=== PATIENT | female | born 1990 | race Caucasian/White ===

== ENCOUNTER 2020-12-04 16:45 | Outpatient (REF) | payer MEDICAID, SELFPAY | END 2020-12-04 16:46 | disposition home or self-care (01) | LOC: HO.LAB 16:45 | PROVIDERS: Visit Provider Internal Medicine | DX: Z20.828 Contact with and (suspected) exposure to other viral communicable diseases (principal) | CPT/HCPCS: 36415; C9803; U0003 ==

== ENCOUNTER 2020-12-30 16:55 | Emergency (ER) | payer MEDICAID, SELFPAY ==
[2020-12-30 17:31] VITALS: BP 112/56; PULSE 68; RESP 16; TEMP 36.7; O2SAT 100; BMI 26.2
[2020-12-30 18:00] VITALS: BP 126/69; PULSE 66; RESP 18; TEMP 36.7; O2SAT 100
--- NOTE | 2020-12-30 18:20 | ED_ITS ---
HPI - URI/Sore Throat General Chief Complaint: Upper Respiratory Symptoms Stated Complaint: Cough/-Covid test 2wks ago Source: patient Mode of arrival: ambulatory Limitations: language barrier History of Present Illness HPI Narrative: 30-year-old female with recurrent bronchitis presents with upper respiratory that she feels is consistent with her history of yearly bronchitis. She states to have a deep cough, itchy throat and mucous, does not report any fevers or chills, headaches, chest pain or pressure, palpitations, shortness breath, abdominal pain, abdominal distention, dysuria, hematuria, and edema. MD elicited complaint: cough and sore throat Onset (ago): week(s) (3) Consistency: constant Severity: moderate Description of mucous: clear Able to tolerate fluids by mouth: Yes Exacerbating factors: exertion Relieving factors: nothing Associated symptoms: denies other symptoms Treatments prior to arrival: acetaminophen, ibuprofen and cold medicine Related Data Previous Rx's Medication Instructions Recorded azithromycin [Zithromax Z-Kranthi] 250 mg PO DAILY 4 Days #4 tab 12/30/20 benzonatate [Tessalon Perles] 100 mg PO TID PRN #30 cap 12/30/20 Allergies Allergy/AdvReac Type Severity Reaction Status Date / Time No Known Allergies Allergy Verified 12/30/20 17:37 [No Known Allergies*] Review of Systems Review of Systems: Constitutional: No Fever, No Chills ENT/Mouth: No oral swelling, No Hoarseness, No Swallowing Difficulty Eyes: No Eye Pain, No Swelling, No Redness Cardiovascular: No Chest Pain, No SOB Respiratory: Positive Cough, positive Sputum, No Wheezing, No Smoke Exposure, No Dyspnea Gastrointestinal: No Nausea, No Vomiting, No Diarrhea, No abdominal Pain Genitourinary: No Dysuria, No Urinary Frequency, No Hematuria Musculoskeletal: No joint pain, No Myalgias, No Joint Swelling Skin: No Skin Lesions, no rash Neuro: No Weakness, No Numbness, No Headache Psych: No Anxiety/Panic, No Depression Heme/Lymph: No Bruising, No Lymphadenopathy Endocrine: No Polyuria, No Polydipsia Yes all other systems are reviewed and are negative [facility] Past Medical History Attestation statement: The following information was validated with the patient. Source: old records reviewed Medical History No known health problems Social History Social History Advance Directives: No Advance Directives Information Provided: No Physical Exam Vital Signs: Vital Signs: Last Vital Signs Temp 98.1 F 12/30/20 18:00 Pulse 82 12/30/20 18:41 Resp 18 12/30/20 18:00 BP 126/69 12/30/20 18:00 Pulse Ox 100 12/30/20 18:00 Body Mass Index 26.2 Appearance: Alert. Oriented X3. No acute distress. Eyes: Pupils equal, round and reactive to light. ENT: Pharynx normal. Neck: Normal inspection. Neck supple. CVS: Normal heart rate and rhythm. Pulses normal. Respiratory: No respiratory distress. Breath sounds normal. Abdomen: Soft and nontender. Skin: Skin warm and dry. Normal skin color. Normal skin turgor. Extremities: No lower extremity edema. Neuro: No motor deficit. No sensory deficit. Course Course Course Narrative: 30-year-old female with past medical history of recurrent bronchitis presents with symptoms consistent with her past history. States that she has been coughing with itchy throat for approximately 3 weeks, had a negative COVID test on 12/07/2020, but states that her symptoms are present dressing and feels like her mucus is getting thicker. Plan of care is to repeat COVID test, and for chest x-ray. COVID negative. Plan of care is to discharge home with azithromycin, Tessalon and albuterol. Patient verbalized understanding of and agrees plan of care discharge home. MDM - URI/Sore Throat Differential Diagnosis Differential diagnosis: Likely upper respiratory infection, otitis media, sinusitis, viral infection and bronchitis Medical Records Attestation: I reviewed the patient's medical records. Lab Data Attestation: I reviewed the patient's lab results. Labs: Lab Results 12/30/20 Range/Units 17:39 Coronavirus (PCR) NEGATIVE (Negative) Influenza Type A (PCR) NEGATIVE (Negative) Influenza Type B (PCR) NEGATIVE (Negative) RSV RNA Qual (PCR) NEGATIVE (Negative) Imaging Data Chest x-ray: Attestation: I personally reviewed and interpreted this imaging study as follows: Radiologist's impression: EXAMINATION: XR CHEST CLINICAL INFORMATION: Cough COMPARISON: Chest x-ray of 11/03/2019 TECHNIQUE: Frontal view of the chest was obtained. FINDINGS: The cardiomediastinal silhouette is stable and normal. The lungs are symmetrically well expanded. The lungs are clear. No evidence of pleural effusions or pneumothorax. Regional skeleton is intact. Visualized upper abdomen is unremarkable. XR/XR chest 1V IMPRESSION: No radiographic evidence of pneumonia. No acute pulmonary process. Discharge Plan Discharge Clinical Impression: Bronchitis Upper respiratory infection Qualifiers: URI type: unspecified URI Qualified Code(s): J06.9 - Acute upper respiratory infection, unspecified Patient Disposition: Home, Self-Care Instructions: Acute Bronchitis (ED) Additional Instructions: You were evaluated for upper respiratory symptoms. Chest x-ray is negative. Based on your past medical history of recurrent bronchitis we will treat you with Azithromycin. Please take this medication as directed. Follow-up with primary care physician as needed. Thank you for choosing this emergency department for evaluation. Please follow-up with primary care physician as needed. Return to the emergency department for any new, concerning, or worsening symptoms. Prescriptions: New azithromycin [Zithromax Z-Kranthi] 250 mg tablet 250 mg PO DAILY 4 Days Qty: 4 RF: 0 benzonatate [Tessalon Perles] 100 mg capsule 100 mg PO TID PRN (Reason: cough) Qty: 30 RF: 0 Interventions: ED Discharge Assessment Last Done: 12/30/20 19:34 Discharge Date/Time: 12/30/20 19:36
[2020-12-30] MEDS: Albuterol Sulfate 90 MCG 8 GM INHALER 2 PUFF INHALE (18:40)
[2020-12-30 18:41] VITALS: PULSE 82; O2SAT 96
[2020-12-30] MEDS: Azithromycin 500 MG TABLET PO (19:30)
[2020-12-30 19:57] LABS: Influenza A PCR NEGATIVE (Negative); Influenza B PCR NEGATIVE (Negative); Resp Syncy Virus RNA Qual PCR NEGATIVE (Negative); SARS COV2 PCR INHOUSE NEGATIVE (Negative)
== END 2020-12-30 19:36 | disposition home or self-care (01) ==
PROVIDERS: Emergency Provider Internal Medicine; PCP Student in an Organized Health Care Education/Training Program
DX: J20.9 Acute bronchitis, unspecified (principal); J06.9 Acute upper respiratory infection, unspecified; Z20.822 Contact with and (suspected) exposure to COVID-19
CPT/HCPCS: 0241U; 36415; 71045; 94640; 99283

== ENCOUNTER 2021-01-20 00:37 | Emergency (ER) | payer MEDICAID, SELFPAY ==
--- NOTE | ~2021-01-20 | XR_ITS ---
EXAMINATION: XR CHEST CLINICAL INFORMATION: Cough COMPARISON: 12/30/2020 TECHNIQUE: Frontal view of the chest was obtained. FINDINGS: The lungs are well expanded. There is no focal consolidation, edema, or effusion. No pneumothorax. The cardiomediastinal silhouette is within normal limits. No acute osseous abnormality. XR/XR chest 1V IMPRESSION: Clear lungs.
[2021-01-20 02:27] VITALS: BP 122/63; PULSE 80; RESP 18; TEMP 36.9; O2SAT 98; BMI 26.2
--- NOTE | 2021-01-20 03:47 | ED.URI ---
HPI - URI/Sore Throat General Chief Complaint: Upper Respiratory Symptoms Stated Complaint: Bronchitis? Time Seen by Provider: 01/20/21 03:39 Source: patient Mode of arrival: ambulatory Limitations: no limitations History of Present Illness HPI Narrative: Patient comes to emergency room complaining that her bronchitis has not improved. Patient states she was diagnosed with bronchitis at the end of December, patient still coughing. Patient states she has talked to her primary care physician. Patient has had multiple rounds of antibiotics and prednisone and Tessalon Perles. Patient states she still dry coughing. Patient denies shortness of breath. MD elicited complaint: cough Related Data Previous Rx's Medication Instructions Recorded azithromycin [Zithromax Z-Kranthi] 250 mg PO DAILY 4 Days #4 tab 12/30/20 benzonatate [Tessalon Perles] 100 mg PO TID PRN #30 cap 12/30/20 Allergies Allergy/AdvReac Type Severity Reaction Status Date / Time No Known Allergies Allergy Verified 12/30/20 17:37 [No Known Allergies*] Review of Systems Review of Systems: Constitutional : No Weight loss, No Fever, No Chills, No Night Sweats, No Fatigue, No Malaise ENT/Mouth : No Hearing loss, No Ear Pain, No Nasal Congestion, No Sinus Pain, No Hoarseness, No sore throat, No Rhinorrhea, No Swallowing Difficulty Eyes: No Eye Pain, No Swelling, No Redness, No Foreign Body, No Discharge, No Vision Changes Cardiovascular : No Chest Pain, No SOB, No Dyspnea on Exertion, No Orthopnea, No Edema, No Palpitations Respiratory : Complaining of dry Cough, No Sputum, No Wheezing, No Smoke Exposure, No Dyspnea Gastrointestinal : No Nausea, No Vomiting, No Diarrhea, No Constipation, No abdominal Pain, No Hematochezia, No Melena Genitourinary : no irregular bleeding, No Dysuria, No Urinary Frequency, No Hematuria, No Urinary Incontinence, No Urgency, No Flank Pain, No Urinary Flow Changes, No Hesitancy Musculoskeletal : No joint pain, No Myalgias, No Joint Swelling Skin : No Skin Lesions, No rash Neuro : No Weakness, No Numbness, No Paresthesias, No Loss of Consciousness, No Dizziness, No Headache Psych : No Anxiety/Panic, No Depression, No SI/HI/AH/VH, No Social Issues, Heme/Lymph: No Bruising, No Bleeding,No Lymphadenopathy Endocrine : No Polyuria, No Polydipsia, No Temperature Intolerance PMF Past Medical History Medical History No known health problems Social History Social History Advance Directives: No Physical Exam Vital Signs: Vital Signs: Last Vital Signs Temp 98.5 F 01/20/21 02:27 Pulse 80 01/20/21 02:27 Resp 18 01/20/21 02:27 BP 122/63 01/20/21 02:27 Pulse Ox 98 01/20/21 02:27 Body Mass Index 26.2 Appearance: Alert. Oriented X3. No acute distress. Eyes: Pupils equal, round and reactive to light. ENT: Pharynx normal. Neck: Normal inspection. Neck supple. No lymph nodes noted. No crepitus CVS: Normal heart rate and rhythm. Pulses normal. Normal S1 and S2 Respiratory: No respiratory distress. Breath sounds normal. No Wheezing. No rales Abdomen: Soft and nontender. No rigidity. No distention. good BS x4 Skin: Skin warm and dry. Normal skin color. Normal skin turgor. Extremities: No lower extremity edema. No lower extremity edema. No Lacerations. No Rash Neuro: Oriented X 3. No motor deficit. No sensory deficit. Moving all extermities. No slurred speech. Course Course Course Narrative: I discussed with the patient, that unfortunately, the coughing spells may last 6-8 weeks. At this time, antibiotics are not indicated. Patient has had multiple COVID-19 tests. Patient declined 1 today MDM - URI/Sore Throat Imaging Data Chest x-ray: Radiologist's impression: FINDINGS: The lungs are well expanded. There is no focal consolidation, edema, or effusion. No pneumothorax. The cardiomediastinal silhouette is within normal limits. No acute osseous abnormality. XR/XR chest 1V IMPRESSION: Clear lungs. Discharge Plan Discharge Clinical Impression: Chronic bronchitis Qualifiers: Chronic bronchitis type: simple Qualified Code(s): J41.0 - Simple chronic bronchitis Patient Disposition: Home, Self-Care Instructions: Chronic Bronchitis (ED) Additional Instructions: Please follow-up with your primary care physician tomorrow. If you have any worsening or new symptoms, please return to the emergency room or call 911 Prescriptions: No Action azithromycin [Zithromax Z-Kranthi] 250 mg tablet 250 mg PO DAILY 4 Days Qty: 4 RF: 0 benzonatate [Tessalon Perles] 100 mg capsule 100 mg PO TID PRN (Reason: cough) Qty: 30 RF: 0
== END 2021-01-20 05:30 | disposition home or self-care (01) ==
PROVIDERS: Emergency Provider Emergency Medicine; PCP Student in an Organized Health Care Education/Training Program
DX: J41.0 Simple chronic bronchitis (principal)
CPT/HCPCS: 71045; 99283; 99284

== ENCOUNTER 2021-04-01 18:38 | Emergency (ER) | payer MEDICAID, SELFPAY ==
--- NOTE | ~2021-04-01 | CT_ITS ---
EXAMINATION: CT HEAD WITHOUT CONTRAST CLINICAL INFORMATION: Headache COMPARISON: None TECHNIQUE: Contiguous axial imaging was performed from the skull base to vertex without intravenous administration of contrast. This CT examination was performed using dose optimization techniques as appropriate, variously including the following: *Automated exposure control *Adjustment of mA and/or kV according to patient size (this includes techniques or standardized protocols for targeted exams where dose is matched to indication/reason for exam; i.e. extremities or head) *Use of iterative reconstruction technique DLP: 696 mGy-cm FINDINGS: There is no evidence of acute intracranial hemorrhage or territorial infarction. No abnormal mass effect or midline shift is seen. Roman to white matter differentiation is well preserved. No extra-axial fluid collections are identified. The ventricles are normal in size. There is no abnormal attenuation within the brain parenchyma. The osseous structures and soft tissues are normal. The mastoid air cells and visualized portions of the paranasal sinuses are well aerated. CT/CT head/brain wo con IMPRESSION: No acute intracranial pathology.
[2021-04-01 18:47] VITALS: BP 123/75; PULSE 72; RESP 16; TEMP 36.6; O2SAT 98; BMI 25.7
[2021-04-01 19:33] LABS: UPreg QC Valid YES; Urine Pregnancy NEGATIVE (NEGATIVE)
--- NOTE | 2021-04-01 21:30 | ED_ITS ---
HPI - Headache General Chief Complaint: Headache Stated Complaint: headache Time Seen by Provider: 04/01/21 21:22 Source: patient Mode of arrival: ambulatory Limitations: no limitations History of Present Illness HPI Narrative: 30 yo female with no PMH hit her head on the corner of a table L side on since then noted L sided headache that wont go away also her R eye is painful and irritated MD elicited complaint: headache Onset (ago): day(s) (3) Onset description: suddenly Location: left and temporal Severity: moderate Quality & Timing: throbbing Exacerbating factors: movement of head/neck Relieving factors: nothing Context: recent head injury Associated symptoms: eye pain and eye redness Treatments prior to arrival: acetaminophen and ibuprofen Related Data Previous Rx's Medication Instructions Recorded azithromycin [Zithromax Z-Kranthi] 250 mg PO DAILY 4 Days #4 tab 12/30/20 benzonatate [Tessalon Perles] 100 mg PO TID PRN #30 cap 12/30/20 trfjjwxkhl-wtwjviqjfopau-abbt 1 tab PO Q6H PRN #20 tab 04/01/21 cyclobenzaprine 10 mg PO TID PRN #14 tab 04/01/21 ketotifen fumarate 1 drp OPHTHALMIC (EYE) BID PRN #5 04/01/21 ml Allergies Allergy/AdvReac Type Severity Reaction Status Date / Time No Known Allergies Allergy Verified 12/30/20 17:37 [No Known Allergies*] Review of Systems Review of Systems: Constitutional : No Fever, No Chills, No Fatigue ENT/Mouth : No sore throat, No Rhinorrhea Eyes: pos Eye Pain, No Swelling, pos Redness Cardiovascular : No Chest Pain, No SOB, No Dyspnea on Exertion Respiratory : No Cough, No Sputum Gastrointestinal : No Nausea, No Vomiting, No Diarrhea, No abdominal Pain Genitourinary : No Dysuria, No Urinary Frequency, No Hematuria, Musculoskeletal : No joint pain, No Myalgias, No Joint Swelling Skin : No Skin Lesions, No rash Neuro : No Weakness, No Numbness, No Dizziness, positive Headache Psych : No Anxiety/Panic, No Depression Heme/Lymph: No Bruising, No Bleeding,No Lymphadenopathy Endocrine : No Polyuria, No Polydipsia All other systems reviewed and are negative PMFSH Past Medical History Attestation statement: The following information was validated with the patient. Medical History No known health problems Social History Social History (Updated 04/01/21 @ 21:39 by Anayeli Navas DO) Alcohol intake: never Smoking Status: Never smoker Advance Directives: No Advance Directives Information Provided: No Physical Exam Vital Signs: Vital Signs: Last Vital Signs Temp 98.1 F 04/01/21 22:29 Pulse 64 04/01/21 22:29 Resp 18 04/01/21 22:29 BP 113/61 04/01/21 22:29 Pulse Ox 100 04/01/21 22:29 Body Mass Index 25.7 Appearance: Alert. Oriented X3. No acute distress. Eyes: Pupils equal, round and reactive to light. R eye lateral sclera patch of red inflammed vessels not near iris ENT: Pharynx normal. Neck: Normal inspection. Neck supple. CVS: Normal heart rate and rhythm. Pulses normal. Respiratory: No respiratory distress. Breath sounds normal. Abdomen: Soft and nontender. Skin: Skin warm and dry. Normal skin color. Normal skin turgor. Extremities: No lower extremity edema. No calf ttp Neuro: Oriented X 3. No motor deficit. No sensory deficit. Course Course Course Narrative: symptoms improved stable for DC MDM - Headache MDM Narrative Medical decision making narrative: 30 yo female with recent head injury now with severe headache - will obtain CT scan to r/o trauma but suspect concussion, R eye no vision changes likely episcleritis will provide topical NSAID - dispo per results and findings Lab Data Labs: Lab Results 04/01/21 Range/Units 19:21 Urine Test NEGATIVE (NEGATIVE) Discharge Plan Discharge Clinical Impression: Concussion Qualifiers: Encounter type: initial encounter Loss of consciousness presence/duration: without LOC Qualified Code(s): S06.0X0A - Concussion without loss of cons ciousness, initial encounter Episcleritis Qualifiers: Laterality: right Qualified Code(s): H15.101 - Unspecified episcleritis, right eye Patient Disposition: Home, Self-Care Instructions: Concussion (ED) Additional Instructions: return to ED for any worsening symptoms or concerns Prescriptions: New cyclobenzaprine 10 mg tablet 10 mg PO TID PRN (Reason: muscle spasm) Qty: 14 RF: 0 yiturfkudu-elirjapqtjyho-fpcd 50-325-40 mg tablet 1 tab PO Q6H PRN (Reason: pain) Qty: 20 RF: 0 ketotifen fumarate 0.025 % (0.035 %) drops 1 drp ophthalmic (eye) BID PRN (Reason: allergy symptoms) Qty: 5 RF: 0 No Action azithromycin [Zithromax Z-Kranthi] 250 mg tablet 250 mg PO DAILY 4 Days Qty: 4 RF: 0 benzonatate [Tessalon Perles] 100 mg capsule 100 mg PO TID PRN (Reason: cough) Qty: 30 RF: 0
[2021-04-01 21:41] VITALS: BP 109/61; PULSE 65; RESP 18; TEMP 36.9; O2SAT 99
[2021-04-01] MEDS: Butalb/Acetamin/Caff 50/325/40 TABLET 1 TAB PO (22:02)
[2021-04-01] MEDS: Cyclobenzaprine HCl 10 MG TABLET PO (22:02)
[2021-04-01 22:04] VITALS: BP 110/62; PULSE 66; RESP 6; TEMP 36.8; O2SAT 100
[2021-04-01 22:29] VITALS: BP 113/61; PULSE 64; RESP 18; TEMP 36.7; O2SAT 100
[2021-04-01] MEDS: Ketotifen Fumarate 0.025% Oph 5 ML DRPBTL 1 DROP EYE-BOTH (22:45)
== END 2021-04-01 23:26 | disposition home or self-care (01) ==
PROVIDERS: Emergency Provider Emergency Medicine; PCP Student in an Organized Health Care Education/Training Program
DX: S06.0X0A Concussion without loss of consciousness, initial encounter (principal); W22.03XA Walked into furniture, initial encounter; H15.101 Unspecified episcleritis, right eye; R51.9 Headache, unspecified; H57.11 Ocular pain, right eye; Y93.9 Activity, unspecified; Y92.039 Unspecified place in apartment as the place of occurrence of the external cause; Y99.9 Unspecified external cause status
CPT/HCPCS: 70450; 81025; 99284

== ENCOUNTER 2022-06-20 14:00 | Outpatient (RCR) | payer MEDICAID, SELFPAY ==
[2022-05-07 11:18] VITALS: BP 112/63; PULSE 65
== END 2022-06-20 15:23 | disposition home or self-care (01) ==
LOC: HO.PT 14:00
PROVIDERS: PCP Student in an Organized Health Care Education/Training Program; Visit Provider Student in an Organized Health Care Education/Training Program
DX: M54.2 Cervicalgia (principal)
CPT/HCPCS: 97014; 97110; 97140; 97162

== ENCOUNTER → 2022-10-02 15:41 | Outpatient (BNVA) | payer MEDICAID, SELFPAY | PROVIDERS: PCP Student in an Organized Health Care Education/Training Program; Visit Provider Anesthesiology | DX: M47.812 Spondylosis without myelopathy or radiculopathy, cervical region (principal); M19.011 Primary osteoarthritis, right shoulder; M19.012 Primary osteoarthritis, left shoulder | CPT/HCPCS: 99202 ==

== ENCOUNTER 2022-10-15 06:08 | Outpatient (REF) | payer MEDICAID, SELFPAY ==
--- NOTE | ~2022-10-15 | FL_ITS ---
EXAMINATION: XR FLUOROSCOPY WITH IMAGES CLINICAL INFORMATION: M47.812 - Spondylosis without myelopathy or radiculopathy, cervical region COMPARISON: Outside MR cervical spine 03/05/2022 ([facility]) TECHNIQUE: Fluoroscopy Supervised By: Dr. Genaro Holt. Fluoroscopy Time: 0.7 minutes. Cumulative Dose: 3.51 mGy. DAP: 0.959 Gycm2. Images: 7. FINDINGS: There are spinal needles overlying the bilateral lateral masses cervical spine approximately C4, C5, and C6. There is contrast in the paraspinal soft tissues and nerve sheaths. No visible vascular communication. FL/FL guidance in treatment room IMPRESSION: Fluoroscopy for pain management procedure.
== END 2022-10-15 06:09 | disposition home or self-care (01) ==
LOC: CF 06:08
PROVIDERS: Visit Provider Anesthesiology
DX: M47.812 Spondylosis without myelopathy or radiculopathy, cervical region (principal)
CPT/HCPCS: 64490; 64491; J3300

== ENCOUNTER → 2022-11-13 15:13 | Outpatient (BNVA) | payer MEDICAID, SELFPAY | PROVIDERS: PCP Student in an Organized Health Care Education/Training Program; Visit Provider Anesthesiology | DX: M47.812 Spondylosis without myelopathy or radiculopathy, cervical region (principal); M19.011 Primary osteoarthritis, right shoulder; M19.012 Primary osteoarthritis, left shoulder | CPT/HCPCS: 99212 ==

== ENCOUNTER 2022-11-16 16:23 | Emergency (ER) | payer MEDICAID, SELFPAY ==
--- NOTE | ~2022-11-16 | CT_ITS ---
EXAMINATION: NONCONTRAST HEAD CT NONCONTRAST CERVICAL SPINE CT INDICATION INFORMATION: Headache for one month after pain management neck injection COMPARISON: Head CT 04/01/2021 TECHNIQUE: Separate noncontrast CT examinations of the head and cervical spine were performed. Coronal and sagittal images were created for each examination at the technologist workstation. This CT examination was performed using dose optimization techniques as appropriate, variously including the following: *Automated exposure control *Adjustment of mA and/or kV according to patient size (this includes techniques or standardized protocols for targeted exams where dose is matched to indication/reason for exam; i.e. extremities or head) *Use of iterative reconstruction technique DLP: 1029 mGy-cm FINDINGS: HEAD: No intra or extra-axial fluid collection, hemorrhage, or mass. No ventriculomegaly. No midline shift or herniation. Basal cisterns are patent. Roman-white matter differentiation is maintained. No territorial encephalomalacia. No significant volume loss. There is no abnormal attenuation within the brain parenchyma. No calvarial fracture or soft tissue abnormality. The mastoid air cells and visualized portions of the paranasal sinuses are well aerated. CERVICAL SPINE: Alignment: Normal. No subluxation. Vertebra: No acute fracture. No prevertebral soft tissue swelling. Degenerative disc disease: No significant. Preserved intervertebral disc heights. Other findings: No cervical lymphadenopathy. Visualized major salivary glands and thyroid gland are unremarkable. Visualized lung apices are clear. CT/CT head/brain wo IV con IMPRESSION: 1. No acute intracranial pathology. 2. No subluxation or cervical spine fracture. Preserved disc space heights.
--- NOTE | ~2022-11-16 | CT_ITS ---
EXAMINATION: NONCONTRAST HEAD CT NONCONTRAST CERVICAL SPINE CT INDICATION INFORMATION: Headache for one month after pain management neck injection COMPARISON: Head CT 04/01/2021 TECHNIQUE: Separate noncontrast CT examinations of the head and cervical spine were performed. Coronal and sagittal images were created for each examination at the technologist workstation. This CT examination was performed using dose optimization techniques as appropriate, variously including the following: *Automated exposure control *Adjustment of mA and/or kV according to patient size (this includes techniques or standardized protocols for targeted exams where dose is matched to indication/reason for exam; i.e. extremities or head) *Use of iterative reconstruction technique DLP: 1029 mGy-cm FINDINGS: HEAD: No intra or extra-axial fluid collection, hemorrhage, or mass. No ventriculomegaly. No midline shift or herniation. Basal cisterns are patent. Roman-white matter differentiation is maintained. No territorial encephalomalacia. No significant volume loss. There is no abnormal attenuation within the brain parenchyma. No calvarial fracture or soft tissue abnormality. The mastoid air cells and visualized portions of the paranasal sinuses are well aerated. CERVICAL SPINE: Alignment: Normal. No subluxation. Vertebra: No acute fracture. No prevertebral soft tissue swelling. Degenerative disc disease: No significant. Preserved intervertebral disc heights. Other findings: No cervical lymphadenopathy. Visualized major salivary glands and thyroid gland are unremarkable. Visualized lung apices are clear. CT/CT cervical spine wo IV con IMPRESSION: 1. No acute intracranial pathology. 2. No subluxation or cervical spine fracture. Preserved disc space heights.
[2022-11-16 16:42] VITALS: BP 119/86; PULSE 86; RESP 18; TEMP 37.2; O2SAT 98; BMI 26.9
--- NOTE | 2022-11-16 16:42 | ED.HA ---
HPI - Headache General Chief Complaint: Headache <SHEMAR Velez - Last Filed: 11/16/22 16:45> Stated Complaint: migraine <SHEMAR Velez - Last Filed: 11/16/22 16:45> Time Seen by Provider: 11/16/22 20:06 <SHEMAR Velez - Last Filed: 11/16/22 16:45> Source: patient <Juve Lloyd MD - Last Filed: 11/17/22 23:16> Limitations: no limitations <Juve Lloyd MD - Last Filed: 11/17/22 23:16> History of Present Illness HPI Narrative: This is a 32-year-old female who complains of a headache for about 3 or 4 days. The patient notes that she has for the chronic headaches which were attributed to tension and or neck related issues. The patient had injections in her neck done on October 15 which she said were painful and she said did not help her headaches. She had follow-up for this about 3 days ago. She is not on any medicines for migraines, has only taking ibuprofen. Her headaches were not thought to be migraines. She does note some photophobia. The headache is primarily in the back of her head. She denies any nausea vomiting. She denies any fever neck stiffness. She denies any numbness or weakness in her arms or legs or face. <Juve Lloyd MD - Last Filed: 11/17/22 23:16> Related Data Home Medications: Previous Rx's Medication Instructions Recorded azithromycin 250 mg tablet 250 mg PO DAILY 4 days #4 tabs 12/30/20 (Zithromax Z-Kranthi) benzonatate 100 mg capsule 100 mg PO TID PRN cough #30 caps 12/30/20 (Tessalon Lori) yiiarcypvb-kkeakibcmskcq-fbdgcyem 1 tab PO Q6H PRN pain #20 tabs 04/01/21 50 mg-325 mg-40 mg tablet cyclobenzaprine 10 mg tablet 10 mg PO TID PRN muscle spasm #14 04/01/21 tabs ketotifen fumarate 0.025 % (0.035 1 drp ophthalmic (eye) BID PRN 04/01/21 %) eye drops allergy symptoms #5 mL tizanidine 2 mg tablet 2 mg PO TID PRN muscle spasticity 12/14/22 30 days #90 tabs baclofen 10 mg tablet 10 mg PO TID #20 tabs 11/16/22 naproxen 500 mg tablet (Naprosyn) 500 mg PO BID PRN pain #20 tabs 11/16/22 <SHEMAR Velez - Last Filed: 11/16/22 16:45> Allergies/Adverse Reactions: Allergies Allergy/AdvReac Type Severity Reaction Status Date / Time No Known Allergies Allergy Verified 11/16/22 16:42 [No Known Allergies*] <SHEMAR Velez - Last Filed: 11/16/22 16:45> Review of Systems Review of Systems: As per HPI <Juve Lloyd MD - Last Filed: 11/17/22 23:16> [facility] Past Medical History Medical History: Medical History No known health problems <SHEMAR Velez - Last Filed: 11/16/22 16:45> Social History Social History: Social History (Updated 04/01/21 @ 21:39 by Arelis Navas DO) Alcohol intake: never Advance Directives: No Advance Directives Information Provided: Yes <SHEMAR Velez - Last Filed: 11/16/22 16:45> Physical Exam Vital Signs: Vital Signs: Last Vital Signs Temp 98 F 11/16/22 20:18 Pulse 71 11/16/22 20:18 Resp 18 11/16/22 20:18 BP 116/75 11/16/22 20:18 Pulse Ox 99 11/16/22 20:18 O2 Del Method 11/16/22 20:18 BMI result Body Mass Index 26.9 <SHEMAR Velez - Last Filed: 11/16/22 16:45> Vital Signs: Last Vital Signs Temp 98 F 11/16/22 20:18 Pulse 71 11/16/22 20:18 Resp 18 11/16/22 20:18 BP 116/75 11/16/22 20:18 Pulse Ox 99 11/16/22 20:18 O2 Del Method 11/16/22 20:18 BMI result Body Mass Index 26.9 <Juve Lloyd MD - Last Filed: 11/17/22 23:16> Const: Other: PERRLA Conj [place] Mucous membranes moist Throat clear Neck supple Lungs CTA Heart RRR no murmurs rubs or gallops Abd soft, non tender, non distended Extremities no pitting edema Neuro alert and oriented x 3, non focal <Juve Lloyd MD - Last Filed: 11/17/22 23:16> Course Course Course Narrative: GIORGIO- 16:45PM - 32yoF presenting to the ED with complaints of a migraine headache that started approximately on 10/15/2022 after she had neck injections from pain management. Reports that the pain is persistent since the injections. Reports that she followed up with pain management approximately 1 week ago and they told her there was nothing else they can do for her. She reports she usually does not get headaches. She denies any other symptoms related to this. She is requesting an MRI. I explained to her that we do not do MRIs in the ER unless they are emergent I did offer her CT scan. Plan: Patient has a normal steady gait. She is stable. Patient will be sent back to the waiting room to be evaluated in the ED will obtain labs, CT scan of brain/cervical spine and COVID/influenza swab. <SHEMAR Velez - Last Filed: 11/16/22 16:45> Medications Administered Discontinued Medications Generic Name Dose Route Start Last Admin Trade Name Freq PRN Reason Stop Dose Admin Diazepam 5 mg 11/16/22 20:13 11/16/22 20:22 Diazepam 10 Mg/2 Ml Cartridge IM 11/16/22 20:14 5 mg STAT STA Administration Ketorolac Tromethamine 30 mg 11/16/22 20:13 11/16/22 20:23 Ketorolac Tromethamine 30 Mg/Ml Vial IM 11/16/22 20:14 30 mg ONCE ONE Administration Prochlorperazine Edisylate 10 mg 11/16/22 20:13 11/16/22 20:23 Prochlorperazine Edisylate 10 Mg/2 Ml Vial IM 11/16/22 20:14 10 mg ONCE ONE Administration <SHEMAR Velez - Last Filed: 11/16/22 16:45> Medications Administered Discontinued Medications Generic Name Dose Route Start Last Admin Trade Name Freq PRN Reason Stop Dose Admin Diazepam 5 mg 11/16/22 20:13 11/16/22 20:22 Diazepam 10 Mg/2 Ml Cartridge IM 11/16/22 20:14 5 mg STAT STA Administration Ketorolac Tromethamine 30 mg 11/16/22 20:13 11/16/22 20:23 Ketorolac Tromethamine 30 Mg/Ml Vial IM 11/16/22 20:14 30 mg ONCE ONE Administration Prochlorperazine Edisylate 10 mg 11/16/22 20:13 11/16/22 20:23 Prochlorperazine Edisylate 10 Mg/2 Ml Vial IM 11/16/22 20:14 10 mg ONCE ONE Administration <Juve Lloyd MD - Last Filed: 11/17/22 23:16> Medical Decision Making Medical Decision Making MDM Narrative: Patient with chronic posterior headache and neck pain, has had fairly recent injections for this. Patient was treated with Toradol, Valium, and Compazine here in the emergency department and had some improving her symptoms. Patient has been thought to have tension headaches. Will prescribe baclofen and Naprosyn. <Juve Lloyd MD - Last Filed: 11/17/22 23:16> Lab Data Result Diagrams: : 11/16/22 17:18 11/16/22 17:18 <SHEMAR Velez - Last Filed: 11/16/22 16:45> Labs: Lab Results 11/16/22 11/16/22 11/16/22 Range/Units 17:18 17:18 17:18 WBC 9.9 (4.8-10.8) X10*3/uL RBC 4.83 (4.20-5.50) X10*6/uL Hgb 13.0 (12.0-16.0) g/dl Hct 41.0 (37.0-47.0) % MCV 84.9 (80.0-98.0) fL MCH 26.9 L (27.0-33.0) pg MCHC 31.7 (31.0-35.0) g/dl RDW 14.0 (11.0-16.0) % Plt Count 229 (160-400) X10*3/uL MPV 9.4 (9.4-12.3) fL Immature Gran % (Auto) 0.4 (0.0-0.4) % Neut % (Auto) 62.5 (45-73) % Lymph % (Auto) 28.7 (20-40) % [place] % (Auto) 5.9 (2-11) % Eos % (Auto) 1.8 (0-4) % Baso % (Auto) 0.7 (0-2) % Lymph # (Auto) 2.8 (1.2-4.9) X10*3/uL [place] # (Auto) 0.6 (0.1-1.2) X10*3/uL Eos # (Auto) 0.2 (0.0-0.4) X10*3/uL Baso # (Auto) 0.1 (0.0-0.2) X10*3/uL Abs Immat Gran (auto) 0.04 H (0.00-0.03) X10*3/uL Absolute Neuts (auto) 6.2 (2.0-8.3) x10*3/uL Absolute Nucleated RBC 0.000 (0.0-0.012) X10*3/uL Nucleated RBC % (auto) 0.0 (0.0-0.2) /100WBC PT (10.0-13.1) SEC INR (0.9-1.1) Sodium (135-145) mmol/L Potassium (3.3-5.1) mmol/L Chloride (96-108) mmol/L Carbon Dioxide (22-29) mmol/L Anion Gap (12-20) BUN (9-16) mg/dL Creatinine (0.5-1.4) mg/dL Estim Creat Clear Calc Estimated GFR Random Glucose (60-115) mg/dL Calcium (8.4-10.2) mg/dL Magnesium (1.6-2.6) mg/dL Total Bilirubin (0.0-1.0) mg/dL AST (5-31) U/L ALT (0-31) U/L Alkaline Phosphatase (39-117) U/L Total Protein (6.5-8.0) g/dL Albumin (3.5-5.0) g/dL Beta HCG, Quant mIU/mL COVID-19 (JOSE) Negative (Negative) COVID-19 Clin Com See Note Influenza Type A (ROSCOE) Negative (Negative) Influenza Type B (ROSCOE) Negative (Negative) Influenza A & B Note See Note 11/16/22 11/16/22 Range/Units 17:18 17:18 WBC (4.8-10.8) X10*3/uL RBC (4.20-5.50) X10*6/uL Hgb (12.0-16.0) g/dl Hct (37.0-47.0) % MCV (80.0-98.0) fL MCH (27.0-33.0) pg MCHC (31.0-35.0) g/dl RDW (11.0-16.0) % Plt Count (160-400) X10*3/uL MPV (9.4-12.3) fL Immature Gran % (Auto) (0.0-0.4) % Neut % (Auto) (45-73) % Lymph % (Auto) (20-40) % [place] % (Auto) (2-11) % Eos % (Auto) (0-4) % Baso % (Auto) (0-2) % Lymph # (Auto) (1.2-4.9) X10*3/uL [place] # (Auto) (0.1-1.2) X10*3/uL Eos # (Auto) (0.0-0.4) X10*3/uL Baso # (Auto) (0.0-0.2) X10*3/uL Abs Immat Gran (auto) (0.00-0.03) X10*3/uL Absolute Neuts (auto) (2.0-8.3) x10*3/uL Absolute Nucleated RBC (0.0-0.012) X10*3/uL Nucleated RBC % (auto) (0.0-0.2) /100WBC PT 12.3 (10.0-13.1) SEC INR 1.1 (0.9-1.1) Sodium 140 (135-145) mmol/L Potassium 4.1 (3.3-5.1) mmol/L Chloride 106 (96-108) mmol/L Carbon Dioxide 27 (22-29) mmol/L Anion Gap 11 L (12-20) BUN 13 (9-16) mg/dL Creatinine 0.68 (0.5-1.4) mg/dL Estim Creat Clear Calc 98.1 Estimated GFR > 60 Random Glucose 84 (60-115) mg/dL Calcium 9.2 (8.4-10.2) mg/dL Magnesium 2.0 (1.6-2.6) mg/dL Total Bilirubin 0.3 (0.0-1.0) mg/dL AST 26 (5-31) U/L ALT 45 H (0-31) U/L Alkaline Phosphatase 86 (39-117) U/L Total Protein 6.9 (6.5-8.0) g/dL Albumin 4.4 (3.5-5.0) g/dL Beta HCG, Quant < 2 mIU/mL COVID-19 (JOSE) (Negative) COVID-19 Clin Com Influenza Type A (ROSCOE) (Negative) Influenza Type B (ROSCOE) (Negative) Influenza A & B Note <SHEMAR Velez - Last Filed: 11/16/22 16:45> Lab Results 11/16/22 11/16/22 11/16/22 Range/Units 17:18 17:18 17:18 WBC 9.9 (4.8-10.8) X10*3/uL RBC 4.83 (4.20-5.50) X10*6/uL Hgb 13.0 (12.0-16.0) g/dl Hct 41.0 (37.0-47.0) % MCV 84.9 (80.0-98.0) fL MCH 26.9 L (27.0-33.0) pg MCHC 31.7 (31.0-35.0) g/dl RDW 14.0 (11.0-16.0) % Plt Count 229 (160-400) X10*3/uL MPV 9.4 (9.4-12.3) fL Immature Gran % (Auto) 0.4 (0.0-0.4) % Neut % (Auto) 62.5 (45-73) % Lymph % (Auto) 28.7 (20-40) % [place] % (Auto) 5.9 (2-11) % Eos % (Auto) 1.8 (0-4) % Baso % (Auto) 0.7 (0-2) % Lymph # (Auto) 2.8 (1.2-4.9) X10*3/uL [place] # (Auto) 0.6 (0.1-1.2) X10*3/uL Eos # (Auto) 0.2 (0.0-0.4) X10*3/uL Baso # (Auto) 0.1 (0.0-0.2) X10*3/uL Abs Immat Gran (auto) 0.04 H (0.00-0.03) X10*3/uL Absolute Neuts (auto) 6.2 (2.0-8.3) x10*3/uL Absolute Nucleated RBC 0.000 (0.0-0.012) X10*3/uL Nucleated RBC % (auto) 0.0 (0.0-0.2) /100WBC PT (10.0-13.1) SEC INR (0.9-1.1) Sodium (135-145) mmol/L Potassium (3.3-5.1) mmol/L Chloride (96-108) mmol/L Carbon Dioxide (22-29) mmol/L Anion Gap (12-20) BUN (9-16) mg/dL Creatinine (0.5-1.4) mg/dL Estim Creat Clear Calc Estimated GFR Random Glucose (60-115) mg/dL Calcium (8.4-10.2) mg/dL Magnesium (1.6-2.6) mg/dL Total Bilirubin (0.0-1.0) mg/dL AST (5-31) U/L ALT (0-31) U/L Alkaline Phosphatase (39-117) U/L Total Protein (6.5-8.0) g/dL Albumin (3.5-5.0) g/dL Beta HCG, Quant mIU/mL COVID-19 (JOSE) Negative (Negative) COVID-19 Clin Com See Note Influenza Type A (ROSCOE) Negative (Negative) Influenza Type B (ROSCOE) Negative (Negative) Influenza A & B Note See Note 11/16/22 11/16/22 Range/Units 17:18 17:18 WBC (4.8-10.8) X10*3/uL RBC (4.20-5.50) X10*6/uL Hgb (12.0-16.0) g/dl Hct (37.0-47.0) % MCV (80.0-98.0) fL MCH (27.0-33.0) pg MCHC (31.0-35.0) g/dl RDW (11.0-16.0) % Plt Count (160-400) X10*3/uL MPV (9.4-12.3) fL Immature Gran % (Auto) (0.0-0.4) % Neut % (Auto) (45-73) % Lymph % (Auto) (20-40) % [place] % (Auto) (2-11) % Eos % (Auto) (0-4) % Baso % (Auto) (0-2) % Lymph # (Auto) (1.2-4.9) X10*3/uL [place] # (Auto) (0.1-1.2) X10*3/uL Eos # (Auto) (0.0-0.4) X10*3/uL Baso # (Auto) (0.0-0.2) X10*3/uL Abs Immat Gran (auto) (0.00-0.03) X10*3/uL Absolute Neuts (auto) (2.0-8.3) x10*3/uL Absolute Nucleated RBC (0.0-0.012) X10*3/uL Nucleated RBC % (auto) (0.0-0.2) /100WBC PT 12.3 (10.0-13.1) SEC INR 1.1 (0.9-1.1) Sodium 140 (135-145) mmol/L Potassium 4.1 (3.3-5.1) mmol/L Chloride 106 (96-108) mmol/L Carbon Dioxide 27 (22-29) mmol/L Anion Gap 11 L (12-20) BUN 13 (9-16) mg/dL Creatinine 0.68 (0.5-1.4) mg/dL Estim Creat Clear Calc 98.1 Estimated GFR > 60 Random Glucose 84 (60-115) mg/dL Calcium 9.2 (8.4-10.2) mg/dL Magnesium 2.0 (1.6-2.6) mg/dL Total Bilirubin 0.3 (0.0-1.0) mg/dL AST 26 (5-31) U/L ALT 45 H (0-31) U/L Alkaline Phosphatase 86 (39-117) U/L Total Protein 6.9 (6.5-8.0) g/dL Albumin 4.4 (3.5-5.0) g/dL Beta HCG, Quant < 2 mIU/mL COVID-19 (JOSE) (Negative) COVID-19 Clin Com Influenza Type A (ROSCOE) (Negative) Influenza Type B ([facility]COE) (Negative) Influenza A & B Note <Juve Lloyd MD - Last Filed: 11/17/22 23:16> Radiology Impression Discussion of test interpretation with radiology: I have reviewed the radiologist's reading. <Juve Lloyd MD - Last Filed: 11/17/22 23:16> Radiologist Impression: CT head and neck without IV contrast: IMPRESSION: 1.? No acute intracranial pathology. 2.? No subluxation or cervical spine fracture. Preserved disc space heights. ? <Juve Lloyd MD - Last Filed: 11/17/22 23:16> Discharge Plan Discharge Clinical Impression: Headache <SHEMAR Velez - Last Filed: 11/16/22 16:45> Patient Disposition: Home, Self-Care <SHEMAR Velez - Last Filed: 11/16/22 16:45> Instructions: Acute Headache (ED) <SHEMAR Velez - Last Filed: 11/16/22 16:45> Additional Instructions: Follow-up with her primary care physician or pain specialist. Might consider alternative therapies such as acupuncture, chiropractor therapy, physical therapy. <SHEMAR Velez - Last Filed: 11/16/22 16:45> Prescriptions: New baclofen 10 mg tablet 10 mg PO TID Qty: 20 0RF naproxen [Naprosyn] 500 mg tablet 500 mg PO BID PRN (Reason: pain) Qty: 20 0RF No Action azithromycin [Zithromax Z-Kranthi] 250 mg tablet 250 mg PO DAILY 4 Days Qty: 4 0RF benzonatate [Tessalon Perles] 100 mg capsule 100 mg PO TID PRN (Reason: cough) Qty: 30 0RF cyclobenzaprine 10 mg tablet 10 mg PO TID PRN (Reason: muscle spasm) Qty: 14 0RF vspqeckdgq-cxmqzuwnjndcn-dcrd 50-325-40 mg tablet 1 tab PO Q6H PRN (Reason: pain) Qty: 20 0RF ketotifen fumarate 0.025 % (0.035 %) drops 1 drp ophthalmic (eye) BID PRN (Reason: allergy symptoms) Qty: 5 0RF Rx Instructions: administer at least 8 hours apart tizanidine 2 mg tablet 2 mg PO TID PRN (Reason: muscle spasticity) 30 Days Qty: 90 6RF Rx Instructions: She may take more than 1 pill at night if she feels that this medication makes her drowsy and sleepy and take half a pill during the daytime twice a day. <SHEMAR Velez - Last Filed: 11/16/22 16:45> Interventions: ED Discharge Assessment Last Done: 11/16/22 23:21 <SHEMAR Velez - Last Filed: 11/16/22 16:45> Discharge Date/Time: 11/16/22 23:22 <SHEMAR Velez - Last Filed: 11/16/22 16:45>
[2022-11-16 17:25] LABS: MANUAL DIFF FLAG NO
[2022-11-16 17:27] LABS: Basophils Absolute Auto 0.1 X10*3/uL (0.0-0.2); Basophils Percent Auto 0.7 % (0-2); Eosinophils Absolute Auto 0.2 X10*3/uL (0.0-0.4); Eosinophils Percent Auto 1.8 % (0-4); Imm Gran Abs Auto 0.04 X10*3/uL (0.00-0.03); Imm Gran Pct Auto 0.4 % (0.0-0.4); Lymphocytes Absolute Auto 2.8 X10*3/uL (1.2-4.9); Lymphocytes Percent Auto 28.7 % (20-40); Mean Corpuscular HGB Conc 31.7 g/dl (31.0-35.0); Mean Corpuscular Hemoglobin 26.9 pg (27.0-33.0); Mean Corpuscular Volume 84.9 fL (80.0-98.0); Mean Platelet Volume 9.4 fL (9.4-12.3); Monocytes Absolute Auto 0.6 X10*3/uL (0.1-1.2); Monocytes Percent Auto 5.9 % (2-11); Neutrophils Absolute Auto 6.2 x10*3/uL (2.0-8.3); Neutrophils Percent Auto 62.5 % (45-73); Platelet Count 229 X10*3/uL (160-400); Red Blood Count 4.83 X10*6/uL (4.20-5.50); White Blood Count 9.9 X10*3/uL (4.8-10.8)
[2022-11-16 17:35] LABS: INTERNATIONAL NORM RATIO 1.1 (0.9-1.1); Prothrombin Time 12.3 SEC (10.0-13.1)
[2022-11-16 17:54] LABS: Alanine Aminotransferase 45 U/L (0-31); Albumin Level 4.4 g/dL (3.5-5.0); Alkaline Phosphatase 86 U/L (39-117); Anion Gap 11 (12-20); Aspartate Amino Transferase 26 U/L (5-31); Bilirubin Total 0.3 mg/dL (0.0-1.0); Blood Urea Nitrogen 13 mg/dL (9-16); Calcium 9.2 mg/dL (8.4-10.2); Carbon Dioxide 27 mmol/L (22-29); Chloride 106 mmol/L (96-108); Creatinine Clr Calc Pharmacy 98.1; Estimated Glomerular Filt Rate > 60; Glucose Random 84 mg/dL (60-115); Potassium 4.1 mmol/L (3.3-5.1); Sodium 140 mmol/L (135-145); Total Protein 6.9 g/dL (6.5-8.0)
[2022-11-16 17:55] LABS: COVID-19 Test Negative (Negative); IDNOW Serial# 16C4AD1C; IDNOW Serial# BCCEAD1C; Influenza A Negative (Negative); Influenza B2 Negative (Negative)
[2022-11-16 18:50] LABS: HCG Quantitative < 2 mIU/mL
[2022-11-16 20:18] VITALS: BP 116/75; PULSE 71; RESP 18; TEMP 36.6; O2SAT 99
[2022-11-16] MEDS: diazePAM 10 MG/2 ML CARTRIDGE 5 MG IM (20:22)
[2022-11-16] MEDS: Prochlorperazine Edisylate 10 MG/2 ML VIAL IM (20:23)
[2022-11-16] MEDS: Ketorolac Tromethamine 30 MG/ML VIAL IM (20:23)
--- NOTE | 2022-11-16 20:34 | PC.NURSE ---
pt A&Ox4, states that she got injections for her headaches and she has been in increasingly worse pain. Medications were administered per JAN, lights turned down, pt now resting
== END 2022-11-16 23:22 | disposition home or self-care (01) ==
PROVIDERS: Physician Assistant Medical; Emergency Provider Emergency Medicine; PCP Student in an Organized Health Care Education/Training Program
DX: R51.9 Headache, unspecified (principal); Z20.822 Contact with and (suspected) exposure to COVID-19
CPT/HCPCS: 36415; 70450; 72125; 80053; 83735; 84702; 85025; 85610; 87502; 87635; 96372; 99284; J1885; J3360

== ENCOUNTER → 2023-01-15 15:08 | Outpatient (BNVA) | payer MEDICAID, SELFPAY | PROVIDERS: PCP Student in an Organized Health Care Education/Training Program; Visit Provider Anesthesiology | DX: Z13.89 Encounter for screening for other disorder (principal) ==

== ENCOUNTER → 2023-07-08 14:30 | Outpatient (BNV) | payer MEDICAID, SELFPAY | PROVIDERS: PCP Student in an Organized Health Care Education/Training Program; Visit Provider Internal Medicine Pulmonary Disease | DX: R06.09 Other forms of dyspnea (principal) | CPT/HCPCS: 94060; 94727; 94729 ==

== ENCOUNTER 2023-07-08 14:36 | Outpatient (REF) | payer MEDICAID, SELFPAY ==
--- NOTE | 2023-07-08 | PFT_ITS ---
FLOWS: 1. FEV1 89% of predicted at 2.46 L. 2. FVC 78% of predicted at 2.56 L. 3. FEV1 to FVC ratio of 0.96. 4. No bronchodilator response except in odafi-uk-hmvsfx airway. LUNG VOLUMES: 1. Total lung capacity 77% of predicted at 3.46 L. 2. Residual volume 66% of predicted at 0.83 L. 3. Slow vital capacity 82% of predicted at 2.63 L. 4. Expiratory reserve volume 53% of predicted at 0.62 L. 5. Diffusion capacity is normal. IMPRESSION: Mild restrictive ventilatory defect with no bronchodilator response except in jddev-yw-nnuyjc airways. Kenrick Arevalo MD AP/MODL / [id number]
== END 2023-07-08 14:37 | disposition home or self-care (01) ==
LOC: HO.RESP 14:36
PROVIDERS: PCP Student in an Organized Health Care Education/Training Program; Visit Provider Registered Nurse
DX: R06.02 Shortness of breath (principal)
CPT/HCPCS: 94010; 94727; 94729

== ENCOUNTER 2023-08-01 14:12 | Outpatient (REF) | payer MEDICAID, SELFPAY ==
--- NOTE | ~2023-08-01 | XR_ITS ---
EXAMINATION: XR HIP, LEFT CLINICAL INFORMATION: Pain COMPARISON: Pelvis x-ray March 2020 TECHNIQUE: Two views of the left hip and one view of the pelvis. FINDINGS: No fracture. Alignment is anatomic. Hip joint space is maintained. The joint space is normal. The pelvis and right hip are normal. XR/XR hip LT w PEL1V IMPRESSION: Normal left hip.
== END 2023-08-01 14:13 | disposition home or self-care (01) ==
LOC: HO.XRAY 14:12
PROVIDERS: PCP Student in an Organized Health Care Education/Training Program; Visit Provider Family Medicine
DX: M25.552 Pain in left hip (principal)
CPT/HCPCS: 73502

== ENCOUNTER 2023-09-11 14:09 | Outpatient (AMB) | payer MEDICAID, SELFPAY ==
[2023-09-11 14:16] VITALS: BMI 26.9
--- NOTE | 2023-09-11 14:16 | A.OFFVIS_ITS ---
Intake Vital Signs 09/11/23 14:16 Height 5 ft Weight 138 lb BMI 26.9 Intake Visit Reasons: [employer]-Left pain Intake Note: Yesenia 33 yr old female presents today for her left hip pain. The patient describes her pain as sharp and severe in nature. Most of the pain is along the anterior aspect of her hip. She did injure her left hip approximately 6 months ago when she fell down a muddy path. She fell directly onto her left hip. Since that time her symptoms have gotten worse in spite of continued non operative treatments. She has done physical therapy for 12 weeks over the last 6 months which aggravated her pain. She has also tried Tylenol and anti- inflammatory medicines as well as baclofen which gave her minimal relief. She denies any numbness or tingling in either of her legs. Allergies No Known Allergies [No Known Allergies*] Allergy (Verified 09/11/23 14:20) Medication List - Last Reconciled 09/11/23 by Nabor Castillo MD albuterol sulfate 90 mcg/actuation (Ventolin HFA) 2 puffs inhalation Q4-6H PRN baclofen 10 mg PO TID benzonatate (Tessalon Perles) 100 mg PO TID PRN khrprdapkr-juakgwdgdouta-tgie 50-325-40 mg 1 tab PO Q6H PRN cyclobenzaprine 10 mg PO TID PRN ketotifen fumarate 0.025%(0.035%) 1 drp ophthalmic (eye) BID PRN methylprednisolone (Medrol (Kranthi)) PO PER PKG DIR PFSH Medical History No known health problems Social History (Updated 09/11/23 @ 14:21 by Conchita Granados [facility]) Alcohol intake: never Current occupational status: employed Current occupation: day care / rt hand Physical Exam Vital Signs: BMI result Body Mass Index 26.9 Const Other: Well-nourished well-developed very friendly female awake alert and oriented x3 in no acute distress Extrem Other: Bilateral lower extremity examination shows good capillary refill, no skin lesions noted, normal sensation light touch Left hip examination shows decreased range of motion when compared to her right hip, pain with range of motion, minimal tenderness over her bursa, increased pain with forward flexion and internal rotation Results Reviewed Results Reviewed: X-rays of the patient's left hip show minimal joint space narrowing, no acute bony abnormalities Assessment & Plan Assessment & Plan (1) Labral tear of left hip joint: Code(s): S73.192A - Other sprain of left hip, initial encounter Plan: Ms. Claude Valladares presents with left hip pain possibly due to a labral tear. Thus, I will send the patient for a left hip MRI arthrogram for further evaluation. I will see her back once the MRI is completed to discuss the findings and treatment options. Feel free to call me at any time should questions regarding her orthopedic management arise. Thank you very much for asking me to see this very friendly. I spent 22 minutes in reviewing the patient's records and imaging studies, seeing the patient and documenting in the medical record. Orders: Orders MR hip LT wo/w con Today S73.192A - Other sprain of left hip, initial encounter XR hip LT min 2V Today M25.552 - Pain in left hip FL arthrogram hip LT Today S73.192A - Other sprain of left hip, initial encounte r Medications: New methylprednisolone (Medrol (Kranthi)) PO PER PKG DIR 21 ea 0RF Coding Level of Care Code New Pt Level 2 (65759) Diagnoses Labral tear of left hip joint S73.192A
== END 2023-09-11 14:40 | disposition home or self-care (01) ==
PROVIDERS: PCP Student in an Organized Health Care Education/Training Program; Visit Provider Orthopaedic Surgery
DX: S73.192A Other sprain of left hip, initial encounter (principal)
CPT/HCPCS: 99202

== ENCOUNTER 2023-09-11 16:25 | Outpatient (REF) | payer MEDICAID, SELFPAY ==
--- NOTE | ~2023-09-11 | XR_ITS ---
EXAMINATION: XR HIP, LEFT CLINICAL INFORMATION: Pain. COMPARISON: Radiographs dated 08/01/2023 and 04/24/2020. TECHNIQUE: An AP view of the pelvis and a frog-leg lateral views of the left hip were submitted. FINDINGS: No fracture. There is a stable tiny well-corticated accessory ossification center situated lateral to the left acetabular roof. Alignment is anatomic. Hip joint space is maintained. Soft tissues are unremarkable. XR/XR hip LT min 2V IMPRESSION: Normal left hip.
== END 2023-09-11 16:26 | disposition home or self-care (01) ==
LOC: HO.HOSX 16:25
PROVIDERS: Visit Provider Orthopaedic Surgery
DX: M25.552 Pain in left hip (principal); S73.192D Other sprain of left hip, subsequent encounter; W19.XXXD Unspecified fall, subsequent encounter; Z79.899 Other long term (current) drug therapy
CPT/HCPCS: 73502; 99202

== ENCOUNTER 2023-10-29 13:18 | Outpatient (REF) | payer MEDICAID, SELFPAY ==
--- NOTE | ~2023-10-29 | FL_ITS ---
Left hip arthrogram Indications: Left hip pain. Intra-articular gadolinium injection is needed prior to MRI. Procedure: Risks and benefits and possible complications were discussed with the patient and the consent form was signed. The patient was placed supine on the fluoroscopy table. The left hip was prepped and draped in normal sterile fashion. 1% buffered lidocaine was used for anesthesia. A 22-gauge spinal needle was used to access the hip joint. Intra-articular position of the needle within the hip joint was verified using 3 cc of Omnipaque 300. A total of 12 mL of gadolinium/saline (1:200) contrast mixture was then injected into the hip joint. The needle was then removed and a Band-Aid was applied to the injection site. The patient tolerated the procedure well and was sent for to MRI. There were no immediate complications. FL/FL arthrogram hip LT Impression: Fluoroscopic left hip arthrogram The procedure was performed by Cm Sky PA-C, and directly supervised by Dr. Geronimo.
--- NOTE | ~2023-10-29 | MR_ITS ---
EXAMINATION: MR HIP WITH CONTRAST, LEFT CLINICAL INFORMATION: Left hip pain. Evaluate for a labral tear. COMPARISON: Most recent left hip fluoroscopic arthrography done earlier the same day. Left hip radiographs dated 09/11/2023. TECHNIQUE: MRI of the left hip was performed after the intra-articular administration of a dilute gadolinium-containing solution on a high-field scanner. FINDINGS: ACETABULAR LABRUM: No contrast extending into the labral tissue to suggest a labral tear. ARTICULAR CARTILAGE/BONE: Intact articular cartilage. No stress reaction, fracture, or avascular necrosis. No concerning lytic or blastic osseous lesion. The alpha angle equals approximately 43 degrees as measured at the 3-o'clock position on the sagittal oblique images. The acetabular depth is within normal limits. MUSCLES/TENDONS: Minimal gluteus medius and gluteus minimus tendinosis. No measurable tendon tear. JOINT FLUID/BURSA: Within normal limits. INTRAPELVIC STRUCTURES: Unremarkable. MR/MR hip LT w con IMPRESSION: 1. No labral tear. 2. No stress reaction, fracture, or avascular necrosis. 3. Minimal gluteus medius and gluteus minimus tendinosis.
[2023-10-29] MEDS: gadobutroL 2 ML VIAL IVPUSH (15:23)
== END 2023-10-29 13:19 | disposition home or self-care (01) ==
LOC: HO.XRAY 13:18
PROVIDERS: PCP Student in an Organized Health Care Education/Training Program; Visit Provider Orthopaedic Surgery
DX: S73.192A Other sprain of left hip, initial encounter (principal)
CPT/HCPCS: 27093; 73525; 73722; A9585

== ENCOUNTER → 2023-10-29 13:34 | Outpatient (BNV) | payer MEDICAID, SELFPAY | PROVIDERS: PCP Student in an Organized Health Care Education/Training Program; Visit Provider Student in an Organized Health Care Education/Training Program | DX: M25.552 Pain in left hip (principal) | CPT/HCPCS: 27093; 73525 ==

== ENCOUNTER 2023-12-11 09:54 | Outpatient (REF) | payer MEDICAID, SELFPAY ==
[2023-12-11 11:40] LABS: MANUAL DIFF FLAG NO
[2023-12-11 11:49] LABS: Basophils Absolute Auto 0.1 X10*3/uL (0.0-0.2); Basophils Percent Auto 0.5 % (0-2); Eosinophils Absolute Auto 0.3 X10*3/uL (0.0-0.4); Eosinophils Percent Auto 1.9 % (0-4); Hematocrit 41.3 % (37.0-47.0); Hemoglobin 12.7 g/dl (12.0-16.0); Imm Gran Abs Auto 0.07 X10*3/uL (0.00-0.03); Imm Gran Pct Auto 0.5 % (0.0-0.4); Lymphocytes Absolute Auto 4.4 X10*3/uL (1.2-4.9); Lymphocytes Percent Auto 29.5 % (20-40); Mean Corpuscular HGB Conc 30.8 g/dl (31.0-35.0); Mean Corpuscular Hemoglobin 26.5 pg (27.0-33.0); Mean Corpuscular Volume 86.2 fL (80.0-98.0); Mean Platelet Volume 10.5 fL (9.4-12.3); Monocytes Absolute Auto 0.7 X10*3/uL (0.1-1.2); Monocytes Percent Auto 4.7 % (2-11); Neutrophils Absolute Auto 9.5 x10*3/uL (2.0-8.3); Neutrophils Percent Auto 62.9 % (45-73); Platelet Count 239 X10*3/uL (160-400); Red Blood Count 4.79 X10*6/uL (4.20-5.50); Red Cell Distribution Width 13.9 % (11.0-16.0)
[2023-12-11 12:13] LABS: Alanine Aminotransferase 33 U/L (0-31); Alkaline Phosphatase 90 U/L (39-117); Anion Gap 11 (12-20); Aspartate Amino Transferase 18 U/L (5-31); Bilirubin Total 0.5 mg/dL (0.0-1.0); Blood Urea Nitrogen 14 mg/dL (9-16); Carbon Dioxide 27 mmol/L (22-29); Chloride 104 mmol/L (96-108); Estimated Glomerular Filt Rate > 60; Glucose Random 90 mg/dL (60-115); Potassium 3.9 mmol/L (3.3-5.1); Sodium 138 mmol/L (135-145); Total Protein 6.7 g/dL (6.5-8.0)
[2023-12-11 12:21] LABS: Cortisol Random 12.6 ug/dL
[2023-12-11 12:22] LABS: Vitamin B12 467 pg/mL (200-900)
[2023-12-11 12:24] LABS: HBS Num1 > 1000.00 mIU/mL (0-7.99); HBc Num1 0.16 S/CO (0.00-0.79); HBsAGNum1 0.21 S/CO (0.00-0.99); HIV AB/AG Nonreactive (Nonreactive); HIV Num 1 0.06 S/CO (0.00-0.99); Hepatitis B Core Antibody Nonreactive (Nonreactive); Hepatitis B Surface Antigen Negative (Negative); ~HepC Num1 0.08 S/CO (0.00-0.79); ~Hepatitis B Surface Antibody REACTIVE (Nonreactive); ~Hepatitis C Antibody Nonreactive (Nonreactive)
[2023-12-11 12:41] LABS: Vitamin D 25-OH Total 44.6 ng/mL (>30)
[2023-12-15 13:28] LABS: RPR Rapid Plasma Reagin NON-REACTIVE (NON-REACTIVE)
== END 2023-12-11 09:55 | disposition home or self-care (01) ==
LOC: HO.HHCL 09:54
PROVIDERS: Visit Provider Emergency Medicine
DX: R42 Dizziness and giddiness (principal)
CPT/HCPCS: 36415; 80053; 82306; 82533; 82607; 84443; 85025; 86592; 86704; 86706; 86803; 87340; 87389

== ENCOUNTER 2024-01-13 15:58 | Outpatient (REF) | payer MEDICAID, SELFPAY ==
--- NOTE | ~2024-01-13 | MR_ITS ---
EXAMINATION: MR CERVICAL SPINE WITHOUT CONTRAST CLINICAL INFORMATION: Neck pain, radiculopathy COMPARISON: CT cervical spine 11/16/2022 TECHNIQUE: MRI of the cervical spine was obtained using routine sequences without contrast. FINDINGS: Straightening with mild reversal of the normal cervical lordosis. No significant spondylolisthesis. Cervical vertebral body heights are maintained. No expansile or destructive osseous lesion. The cervical spinal cord is normal in signal. C2-C3: No significant spinal canal or neural foraminal stenosis. C3-C4: Mild facet degeneration and uncovertebral spurring without significant spinal canal or neural foraminal stenosis. C4-C5: Trace disc bulge indents the ventral thecal sac without significant spinal canal stenosis. Uncovertebral vertebral spurring with mild narrowing of the neural foramen.. C5-C6: Trace disc bulge. Asymmetric left-sided uncovertebral arthropathy with mild to moderate left neural foraminal stenosis. The right neural foramen is patent. C6-C7: No significant spinal canal or neural foraminal stenosis. C7-T1: Mild facet degeneration. The spinal canal and neural foramen are patent. MR/MR cervical spine wo con IMPRESSION: Asymmetric left-sided uncovertebral hypertrophy at C5-C6 with mild to moderate narrowing of the left neural foramen. Additional mild degenerative changes as described above.
== END 2024-01-13 15:59 | disposition home or self-care (01) ==
LOC: HO.MRI 15:58
PROVIDERS: PCP Student in an Organized Health Care Education/Training Program; Visit Provider Student in an Organized Health Care Education/Training Program
DX: M54.12 Radiculopathy, cervical region (principal); M54.2 Cervicalgia
CPT/HCPCS: 72141

== ENCOUNTER 2024-02-24 11:39 | Outpatient (AMB) | payer MEDICAID, SELFPAY ==
[2024-02-24 11:41] VITALS: BMI 26.9
--- NOTE | 2024-02-24 11:41 | A.OFFVIS_ITS ---
Intake Vital Signs 02/24/24 11:41 Height 5 ft Weight 138 lb BMI 26.9 Intake Visit Reasons: ov- MRI Hip LT review Intake Note: Yesenia is a 33 year old female who presents for an MRI review of her Left hip. The patient reports intermittent discomfort along the lateral aspect of her left hip. She denies any weakness in her leg. She has not been to physical therapy. She has taken ibuprofen which gives her mild relief. Allergies No Known Allergies [No Known Allergies*] Allergy (Verified 02/24/24 11:43) Medication List - Last Reconciled 02/24/24 by Nabor Castillo MD albuterol sulfate 90 mcg/actuation (Ventolin HFA) 2 puffs inhalation Q4-6H PRN baclofen 10 mg PO TID benzonatate (Tessalon Perles) 100 mg PO TID PRN viihfnbuqx-fugwsauzixluh-wbsb 50-325-40 mg 1 tab PO Q6H PRN cyclobenzaprine 10 mg PO TID PRN ketotifen fumarate 0.025%(0.035%) 1 drp ophthalmic (eye) BID PRN methylprednisolone (Medrol (Kranthi)) PO PER PKG DIR PFSH Medical History No known health problems Social History Alcohol intake: never Current occupational status: employed Current occupation: day care / rt hand Physical Exam Vital Signs: BMI result Body Mass Index 26.9 Const Other: Well-nourished well-developed very friendly female awake alert and oriented x3 in no acute distress Extrem Other: Bilateral lower extremity examination shows good capillary refill, no skin lesions noted, normal sensation light touch Left hip examination shows full range motion when compared to her right hip, tenderness over her hip abductors and greater trochanteric bursa, no overlying Results Reviewed Results Reviewed: MRI of the patient's left hip shows no evidence of labral tearing, no avascular necrosis, tendinosis within the gluteus medius and gluteus minimus tendons, no tendon tearing Assessment & Plan Assessment & Plan (1) Trochanteric bursitis, left hip: Code(s): M70.62 - Trochanteric bursitis, left hip Plan Ms. Claude Valladares presents with intermittent discomfort along the lateral aspect of her left hip due to greater trochanteric bursitis and hip abductor tendinosis. I put in a referral for the patient to go to formal physical therapy here at [facility]. She will continue with her home exercise program in the meantime. She will follow up with me on an as-needed basis should her symptoms not plateau at an unacceptable level over the next few months. I spent 22 minutes in reviewing the patient's records and imaging studies, seeing the patient and documenting in the medical record. Orders: Orders PT Evaluation and Treatment Today M70.62 - Trochanteric bursitis, left hip Coding Level of Care Code Est Pt Level 2 (33654) Diagnoses Trochanteric bursitis, left hip M70.62
== END 2024-02-24 12:10 | disposition home or self-care (01) ==
PROVIDERS: PCP Student in an Organized Health Care Education/Training Program; Referring Provider Student in an Organized Health Care Education/Training Program; Visit Provider Orthopaedic Surgery
DX: M70.62 Trochanteric bursitis, left hip (principal)
CPT/HCPCS: 99213

== ENCOUNTER → 2024-02-24 11:39 | Outpatient (BNVA) | payer MEDICAID, SELFPAY | PROVIDERS: PCP Student in an Organized Health Care Education/Training Program; Visit Provider Orthopaedic Surgery | DX: M70.62 Trochanteric bursitis, left hip (principal) | CPT/HCPCS: 99212 ==

== ENCOUNTER 2024-05-05 16:13 | Outpatient (REF) | payer MEDICAID, SELFPAY ==
[2024-05-05 19:46] LABS: Influenza A PCR NEGATIVE (Negative); Influenza B PCR NEGATIVE (Negative); Resp Syncy Virus RNA Qual PCR NEGATIVE (Negative); SARS COV2 PCR INHOUSE NEGATIVE (Negative)
== END 2024-05-05 16:14 | disposition home or self-care (01) ==
LOC: HO.CHCLNP 16:13
PROVIDERS: Visit Provider Family Medicine
DX: J06.0 Acute laryngopharyngitis (principal)
CPT/HCPCS: 0241U; 87070

== ENCOUNTER 2024-06-02 11:00 | Outpatient (RCR) | payer MEDICAID, SELFPAY | END 2024-06-18 15:36 | disposition home or self-care (01) | LOC: HO.PT 11:00 | PROVIDERS: PCP Student in an Organized Health Care Education/Training Program; Visit Provider Student in an Organized Health Care Education/Training Program | DX: M54.12 Radiculopathy, cervical region (principal) | CPT/HCPCS: 97110; 97140; 97162 ==